=== PATIENT | male | born 1975 | race Caucasian/White ===

== ENCOUNTER → 2016-10-17 | Outpatient (CLI) | payer BC ==
[~2016-10-17] MED LIST: CIPR-255 PO; ONDA4TAB7 SL; PHEN-1043 PO; RANITAB33 PO
--- NOTE | 2016-10-17 19:47 | DIAGNOSTIC IMAGING REPORT ---
[facility] CLINICAL HISTORY: Nephrolithiasis. Right flank pain. COMPARISON STUDY: CT of the abdomen and pelvis March 05, 2015 and [facility] April 07, 2016. FINDINGS: Postoperative findings within lumbar spine are incidentally noted. Pelvic calcifications are unchanged. There is a possible 3 mm right renal calculus. No ureteral calculi are identified although the course of the right ureter is partially obscured by stool. A 4 mm right pelvic density probably reflects artifact although a distal right ureteral calculus could appear similar. There is no evidence for a bowel obstruction. IMPRESSION: 1. 4 mm right pelvic density. This is likely artifactual. However, a distal right ureteral calculus could appear similar. 2. Possible 3 mm right renal calculus. Electronically signed by: Edinson Simpson M.D. 10/17/2016 7:45 PM Dictated Date/Time: 10/17/2016 7:42 PM
[2016-10-17 19:58] LABS: URINE APPEARANCE CLEAR (CLEAR); URINE BILIRUBIN NEG (NEG); URINE COLOR YELLOW; URINE NITRITE NEG (NEG); URINE PH 6.5 (4.5-7.5); URINE SPECIFIC GRAVITY 1.004 (1.000-1.030); UROBILINOGEN NEG (NEG)
[2016-10-17 20:03] LABS: MANUAL MICROSCOPIC REQUIRED? NO; REVIEW REQ? NO
== END | disposition home or self-care (01) ==
LOC: C.RAD 19:20
PROVIDERS: ATTEND Urology
DX: N20.0 Calculus of kidney (principal)

== ENCOUNTER → 2016-10-21 | Day surgery (SDC) | payer BC ==
[~2016-10-21] MED LIST changes: +LACTATED RINGER'S 1000ML 1,000 ML IV SCH
== END | disposition home or self-care (01) ==
LOC: C.PAT 12:46 → EDSTATUS 13:00
PROVIDERS: ATTEND Urology
DX: N20.0 Calculus of kidney (principal); Z53.9 Procedure and treatment not carried out, unspecified reason